=== PATIENT | female | born 1975 | race Caucasian/White ===

== ENCOUNTER 2017-05-11 13:54 | Emergency (ER) | payer MEDICARE, MEDICAID ==
[~2017-05-11] VITALS: Ht 165.1 cm; Wt 95.3 kg
[2017-05-11 14:02] VITALS: BP 149/73
[2017-05-11] MEDS ORDERED: FAMOTIDINE (20 MG) 20 MG TABLET ONE (14:26)
[2017-05-11] MEDS ORDERED: MAG HYDROX/AL HYDROX/SIMETH 30 ML UDC ONE (14:26)
[2017-05-11] MEDS ORDERED: LIDOCAINE VISCOUS 2% UD 15 ML UDC ONE (14:26)
[2017-05-11] MEDS ORDERED: DICYCLOMINE HCL 10 MG CAPSULE PO ONE ×2 (14:26→14:30)
[2017-05-11] MEDS ORDERED: LIDOCAINE VISCOUS 2% UD 15 ML UDC MM ONE (14:30)
[2017-05-11] MEDS ORDERED: MAG HYDROX/AL HYDROX/SIMETH 30 ML UDC PO ONE (14:30)
[2017-05-11] MEDS ORDERED: FAMOTIDINE (20 MG) 20 MG TABLET PO ONE (14:30)
== END 2017-05-11 14:54 | disposition home or self-care (01) ==
LOC: ER 13:58
DX: R10.13 Epigastric pain (principal); F31.9 Bipolar disorder, unspecified; F17.200 Nicotine dependence, unspecified, uncomplicated; Z87.442 Personal history of urinary calculi; Z88.8 Allergy status to other drugs, medicaments and biological substances; Z91.040 Latex allergy status; Z88.2 Allergy status to sulfonamides
CPT/HCPCS: 99284; A4606; Z7610

== ENCOUNTER 2017-10-07 22:05 | Emergency (ER) | payer MEDICARE, MEDICAID ==
[~2017-10-07] VITALS: Ht 160 cm; Wt 91.2 kg
--- NOTE | 2017-10-07 22:10 | NUR ---
PT BB SELF FROM HOME WITH C/O "STARTED FEELING ANXIOUS AND TOOK LEXAPRO AND NOW I FEEL DIZZY AND NAUSEOUS". PT DENIES N/V/D. PT DENIES ANY PAIN. PT SKIN PINK AND WARM TO TOUCH. RESP EVEN AND UNLABORED. NO S/S OF ACUTE DISTRESS NOTED. PT RESTING COMFORTABLY IN BED. AAOX4. AWAITING MD MARQUEZ.
[2017-10-07] MEDS ORDERED: LORAZEPAM 1 MG TABLET ONE (22:27)
[2017-10-07] MEDS ORDERED: IBUPROFEN 400 MG TABLET ONE (22:27)
[2017-10-07] MEDS ORDERED: LORAZEPAM 1 MG TABLET PO ONE (22:30)
[2017-10-07] MEDS ORDERED: IBUPROFEN 400 MG TABLET PO ONE (22:30)
[2017-10-07 22:34] LABS: APPEARANCE,URINE CLEAR (CLEAR); BILIRUBIN,URINE NEGATIVE (NEGATIVE); BLOOD, URINE NEGATIVE Ery/uL (NEGATIVE); COLOR,URINE YELLOW (YELLOW); KETONES,URINE NEGATIVE (NEGATIVE); LEUKOCYTE ESTERASE ,URINE NEGATIVE (NEGATIVE); NITRITE, URINE NEGATIVE (NEGATIVE); PH,URINE 7.5 (5.0-8.0); PROTEIN,URINE NEGATIVE (NEGATIVE); UGLUCOSE NEGATIVE (NEGATIVE); UROBILINOGEN,URINE 0.2 EU/dL (0.2)
--- NOTE | 2017-10-07 23:40 | NUR ---
Patient discharged to home in stable condition. Written and verbal after care instructions AND RX given. Patient verbalizes understanding of instruction. AMBULATORY WITH STEADY GAIT. VSS
[2017-10-07 23:53] VITALS: BP 110/67
== END 2017-10-07 23:54 | disposition home or self-care (01) ==
LOC: ER 22:08
DX: F41.9 Anxiety disorder, unspecified (principal); J11.1 Influenza due to unidentified influenza virus with other respiratory manifestations; E03.9 Hypothyroidism, unspecified; F17.200 Nicotine dependence, unspecified, uncomplicated; F31.9 Bipolar disorder, unspecified; Z87.442 Personal history of urinary calculi; Z88.2 Allergy status to sulfonamides; Z88.8 Allergy status to other drugs, medicaments and biological substances; Z91.040 Latex allergy status
CPT/HCPCS: 81001; 82962; 84703; 93005; 99285; A4606; 81000-TC; Z7610

== ENCOUNTER 2018-01-20 01:21 | Emergency (ER) | payer MEDICARE, MEDICAID ==
[~2018-01-20] VITALS: Ht 160 cm; Wt 90.7 kg
[2018-01-20 01:29] VITALS: BP 132/70
[2018-01-20] MEDS ORDERED: IBUPROFEN 600 MG TABLET PO ONE ×2 (02:00→02:11)
== END 2018-01-20 02:52 | disposition home or self-care (01) ==
LOC: ER 01:22
DX: S00.83XA Contusion of other part of head, initial encounter (principal); F31.9 Bipolar disorder, unspecified; F41.9 Anxiety disorder, unspecified; E03.9 Hypothyroidism, unspecified; F17.200 Nicotine dependence, unspecified, uncomplicated; Z87.442 Personal history of urinary calculi; Z98.51 Tubal ligation status; Z91.040 Latex allergy status; Z88.2 Allergy status to sulfonamides; Z88.8 Allergy status to other drugs, medicaments and biological substances; W51.XXXA Accidental striking against or bumped into by another person, initial encounter; Y93.89 Activity, other specified; Y92.89 Other specified places as the place of occurrence of the external cause; Y99.8 Other external cause status
CPT/HCPCS: 70486-TC; A4606; Z7610

== ENCOUNTER 2018-04-21 01:30 | Emergency (ER) | payer MEDICARE, MEDICAID ==
[~2018-04-21] VITALS: Ht 160 cm; Wt 90.3 kg
[2018-04-21 02:00] VITALS: BP 120/70
[2018-04-21 03:20] LABS: APPEARANCE,URINE SL CLOUDY (CLEAR); BILIRUBIN,URINE NEGATIVE (NEGATIVE); BLOOD, URINE NEGATIVE Ery/uL (NEGATIVE); COLOR,URINE YELLOW (YELLOW); KETONES,URINE NEGATIVE (NEGATIVE); LEUKOCYTE ESTERASE ,URINE TRACE (NEGATIVE); NITRITE, URINE NEGATIVE (NEGATIVE); PROTEIN,URINE NEGATIVE (NEGATIVE); UGLUCOSE NEGATIVE (NEGATIVE); UROBILINOGEN,URINE 0.2 EU/dL (0.2)
[2018-04-21] MEDS ORDERED: IBUPROFEN 600 MG TABLET PO ONE ×2 (03:22→03:30)
[2018-04-21] MEDS ORDERED: MAG HYDROX/AL HYDROX/SIMETH 30 ML UDC ONE (03:22)
[2018-04-21] MEDS ORDERED: LIDOCAINE VISCOUS 2% UD 15 ML UDC ONE (03:22)
[2018-04-21] MEDS ORDERED: FAMOTIDINE (20 MG) 20 MG TABLET ONE (03:22)
[2018-04-21 03:30] LABS: BASOPHILS # (AUTO) 0.1 /CMM (0.0-0.2); BASOPHILS % (AUTO) 0.5 % (0.0-2.0); EOSINOPHILS % (AUTO) 3.1 % (0.0-6.0); HEMATOCRIT 40 % (33-45); LYMPHOCYTES # (AUTO) 2.4 /CMM (0.8-4.8); LYMPHOCYTES % (AUTO) 23.9 % (20.0-44.0); MEAN CORPUSCULAR HEMOGLOBIN 30 PG (26.0-33.0); MEAN CORPUSCULAR HGB CONC 33 g/dl (31.0-36.0); MEAN CORPUSCULAR VOLUME 92 fL (82-100); MONOCYTES # (AUTO) 0.6 /CMM (0.1-1.30); MONOCYTES % (AUTO) 6.1 % (2.0-12.0); NEUTROPHILS # (AUTO) 6.7 /CMM (1.8-8.9); NEUTROPHILS % (AUTO) 66.4 % (43.0-81.0); PLATELET COUNT (AUTO) 324 /CMM (150-450); RDW COEFFICIENT OF VARIATION 14.5 (11.5-15.0); RED BLOOD CELL COUNT(AUTO) 4.36 MIL/uL (4.0-5.2); WHITE BLOOD COUNT (AUTO) 10.1 K/uL (4.3-11.0)
[2018-04-21] MEDS ORDERED: MAG HYDROX/AL HYDROX/SIMETH 30 ML UDC PO ONE (03:30)
[2018-04-21] MEDS ORDERED: LIDOCAINE VISCOUS 2% UD 15 ML UDC MM ONE (03:30)
[2018-04-21] MEDS ORDERED: FAMOTIDINE (20 MG) 20 MG TABLET PO ONE (03:30)
[2018-04-21 03:45] LABS: BACTERIA,URINE Few /HPF (None Seen); SQUAMOUS EPITHELIAL CELL,UR Few /HPF (None Seen)
[2018-04-21 03:48] LABS: ALBUMIN 3.4 g/dL (3.4-5.0); BILIRUBIN,DIRECT 0.1 mg/dL (0.0-0.2); BILIRUBIN,TOTAL 0.7 mg/dL (0.2-1.0); CALCIUM, SERUM 8.5 mg/dL (8.5-10.1); CREATININE 0.7 mg/dL (0.6-1.3); POTASSIUM 4.1 mmol/L (3.5-5.1); TOTAL PROTEIN, SERUM 7.3 g/dL (6.4-8.2)
== END 2018-04-21 05:52 | disposition home or self-care (01) ==
LOC: ER 01:31
DX: K52.9 Noninfective gastroenteritis and colitis, unspecified (principal); F31.9 Bipolar disorder, unspecified; Z87.442 Personal history of urinary calculi; R10.13 Epigastric pain; F17.200 Nicotine dependence, unspecified, uncomplicated; Z91.040 Latex allergy status; Z88.2 Allergy status to sulfonamides; Z88.8 Allergy status to other drugs, medicaments and biological substances
CPT/HCPCS: 36415; 74176; 80048; 80076; 81001; 83690; 84703; 85025; 87086; 99285; A4606; J7030; 81000-TC; Z7610

== ENCOUNTER 2018-04-29 20:21 | Emergency (ER) | payer MEDICARE, MEDICAID ==
[~2018-04-29] VITALS: Ht 160 cm; Wt 88.0 kg
[2018-04-29 20:31] VITALS: BP 118/71
[2018-04-29] MEDS ORDERED: ACETAMINOPHEN W/ CODEINE#3 1 EA TABLET ONE (21:26)
[2018-04-29] MEDS ORDERED: predniSONE 20 MG TABLET ONE (21:27)
[2018-04-29] MEDS ORDERED: ACETAMINOPHEN W/ CODEINE#3 1 EA TABLET PO ONE (21:30)
[2018-04-29] MEDS ORDERED: predniSONE 20 MG TABLET PO ONE (21:30)
== END 2018-04-29 21:40 | disposition home or self-care (01) ==
LOC: ER 20:22
DX: M54.12 Radiculopathy, cervical region (principal); M79.642 Pain in left hand; F31.9 Bipolar disorder, unspecified; F41.9 Anxiety disorder, unspecified; E03.9 Hypothyroidism, unspecified; Z87.442 Personal history of urinary calculi; F17.200 Nicotine dependence, unspecified, uncomplicated; Z88.2 Allergy status to sulfonamides; Z88.8 Allergy status to other drugs, medicaments and biological substances; Z91.040 Latex allergy status
CPT/HCPCS: 29125; 99283; A4606; J7512; Z7610

== ENCOUNTER 2018-10-06 20:18 | Emergency (ER) | payer MEDICARE, MEDICAID ==
[~2018-10-06] VITALS: Ht 160 cm; Wt 90.7 kg
--- NOTE | 2018-10-06 20:53 | NUR ---
URINE COLLECTED AND SENT TO LAB
[2018-10-06 21:14] LABS: APPEARANCE,URINE Clear (CLEAR); BILIRUBIN,URINE Negative (NEGATIVE); BLOOD, URINE Negative Ery/uL (NEGATIVE); COLOR,URINE Yellow (YELLOW); KETONES,URINE Negative (NEGATIVE); LEUKOCYTE ESTERASE ,URINE Negative (NEGATIVE); NITRITE, URINE Negative (NEGATIVE); PROTEIN,URINE Negative (NEGATIVE); UGLUCOSE Negative (NEGATIVE); UROBILINOGEN,URINE 0.2 EU/dL (0.2)
[2018-10-06] MEDS ORDERED: ACETAMINOPHEN ES 500 MG TABLET ONE (21:29)
[2018-10-06] MEDS ORDERED: ACETAMINOPHEN ES 500 MG TABLET PO ONE (21:30)
[2018-10-06] MEDS ORDERED: IV NS 0.9% 500 ML BAG IV ONE (21:30)
--- NOTE | 2018-10-06 21:30 | NUR ---
Pt came in for abdominal pain, states it must be related to her kidney stones, reports some flank pain. Denies N/V, no fever. Pt is A, O/4, moves all extrmities without difficulty, on RA.
[2018-10-06] MEDS ORDERED: IBUPROFEN 400 MG TABLET ONE (21:35)
--- NOTE | 2018-10-06 21:35 | NUR ---
HL 24g left hand started, labs drawn and sent to lab.
[2018-10-06 21:38] LABS: BASOPHILS # (AUTO) 0.1 /CMM (0.0-0.2); HEMATOCRIT 38 % (33-45); HEMOGLOBIN 12.7 g/dL (11.5-14.8); LYMPHOCYTES # (AUTO) 2.2 /CMM (0.8-4.8); LYMPHOCYTES % (AUTO) 26.8 % (20.0-44.0); MEAN CORPUSCULAR HGB CONC 33 g/dl (31.0-36.0); MEAN CORPUSCULAR VOLUME 90 fL (82-100); MONOCYTES # (AUTO) 0.7 /CMM (0.1-1.30); MONOCYTES % (AUTO) 8.4 % (2.0-12.0); NEUTROPHILS # (AUTO) 4.9 /CMM (1.8-8.9); NEUTROPHILS % (AUTO) 59.8 % (43.0-81.0); PLATELET COUNT (AUTO) 330 /CMM (150-450); RED BLOOD CELL COUNT(AUTO) 4.23 MIL/uL (4.0-5.2); WHITE BLOOD COUNT (AUTO) 8.3 K/uL (4.3-11.0)
[2018-10-06 21:45] LABS: CALCIUM, SERUM 9.1 mg/dL (8.5-10.1); CREATININE 0.7 mg/dL (0.6-1.3)
[2018-10-06 21:52] LABS: ALBUMIN 3.3 g/dL (3.4-5.0); BILIRUBIN,DIRECT 0.1 mg/dL (0.0-0.2); BILIRUBIN,TOTAL 0.5 mg/dL (0.2-1.0); TOTAL PROTEIN, SERUM 7.1 g/dL (6.4-8.2)
--- NOTE | 2018-10-06 21:55 | NUR ---
Pt ambulated to the BR
[2018-10-06] MEDS ORDERED: IBUPROFEN 400 MG TABLET PO ONE (22:00)
--- NOTE | 2018-10-06 22:20 | NUR ---
Pt transported to Radiology for CT abdomen
--- NOTE | 2018-10-06 22:45 | NUR ---
Pt states she feels a lot better, abd pain has subsided. Resting in bed with daughter at BS
[2018-10-07 00:19] VITALS: BP 109/56
--- NOTE | 2018-10-07 00:19 | NUR ---
Patient discharged to home in stable condition. Written and verbal after care instructions given and copy of CT Scan result . Patient verbalizes understanding of instruction.IV removed. Catheter intact and site benign. Pressure and 4x4 applied to site. No bleeding noted. Pt ambulatory with a steady gait
== END 2018-10-07 00:21 | disposition home or self-care (01) ==
LOC: ER 20:21
DX: R10.31 Right lower quadrant pain (principal); F31.9 Bipolar disorder, unspecified; E03.9 Hypothyroidism, unspecified; F17.200 Nicotine dependence, unspecified, uncomplicated; Z98.890 Other specified postprocedural states; Z98.51 Tubal ligation status; Z91.040 Latex allergy status; Z88.2 Allergy status to sulfonamides; Z88.1 Allergy status to other antibiotic agents; Z60.2 Problems related to living alone; Z87.442 Personal history of urinary calculi
CPT/HCPCS: 36415; 80048-TC; 80076-TC; 81000-TC; 83690-TC; 85025-TC; J7030

== ENCOUNTER 2019-05-31 00:31 | Emergency (ER) | payer MEDICARE, MEDICAID ==
[~2019-05-31] VITALS: Ht 160 cm; Wt 94.8 kg
--- NOTE | 2019-05-31 01:32 | NUR ---
TO BED 7 AMBULATORY C/O BLE [place]QU[place]O BITES X5 DAYS. PT AAOX4 NO ACUTE DISTRESS NOTED, RESP EVEN AND UNLABORED. PENDING ER MD MARQUEZ.
[2019-05-31] MEDS ORDERED: DEXAMETHASONE SOD PHOSPHATE 4 MG/ML VIAL ONE (01:46)
[2019-05-31 01:51] VITALS: BP 134/76
--- NOTE | 2019-05-31 01:51 | NUR ---
Patient discharged to home in stable condition. Written and verbal after care instructions given. Patient verbalizes understanding of instruction. ambulatory with a steady gait
[2019-05-31] MEDS ORDERED: DEXAMETHASONE SOD PHOSPHATE 4 MG/ML VIAL IM ONE (02:00)
== END 2019-05-31 01:53 | disposition home or self-care (01) ==
LOC: ER 00:32
DX: S80.862A Insect bite (nonvenomous), left lower leg, initial encounter (principal); S80.861A Insect bite (nonvenomous), right lower leg, initial encounter; F31.9 Bipolar disorder, unspecified; F41.9 Anxiety disorder, unspecified; E03.9 Hypothyroidism, unspecified; F17.200 Nicotine dependence, unspecified, uncomplicated; Z98.890 Other specified postprocedural states; Z88.2 Allergy status to sulfonamides; Z88.1 Allergy status to other antibiotic agents; Z91.040 Latex allergy status; Z60.2 Problems related to living alone; W57.XXXA Bitten or stung by nonvenomous insect and other nonvenomous arthropods, initial encounter; Y93.89 Activity, other specified; Y92.89 Other specified places as the place of occurrence of the external cause; Y99.8 Other external cause status
CPT/HCPCS: 96372; 99283; J1100

== ENCOUNTER 2019-07-14 21:07 | Emergency (ER) | payer MEDICARE, MEDICAID ==
[~2019-07-14] VITALS: Ht 160 cm; Wt 97.5 kg
[2019-07-14 21:17] VITALS: BP 141/86
[2019-07-14] MEDS ORDERED: predniSONE 20 MG TABLET ONE (21:59)
[2019-07-14] MEDS: predniSONE 20 MG TABLET PO ONE (22:02)
[2019-07-14] MEDS ORDERED: IPRATROPIUM NEB FS 0.5 MG/2.5 ML AMPUL.NEB ONE (22:06)
[2019-07-14] MEDS ORDERED: ALBUTEROL FS 2.5 MG/3 ML VIAL.NEB ONE (22:06)
[2019-07-14] MEDS: IPRATROPIUM NEB FS 0.5 MG/2.5 ML AMPUL.NEB NEB ONE (22:08)
[2019-07-14] MEDS: ALBUTEROL FS 2.5 MG/3 ML VIAL.NEB NEB ONE (22:08)
--- NOTE | 2019-07-14 22:09 | NUR ---
PT MEDICATED ORDERED. RT AT BEDSIDE TO GIVE HHN TX.
--- NOTE | 2019-07-14 23:21 | NUR ---
Patient discharged to home in stable condition. Written and verbal after care instructions given. Patient verbalizes understanding of instruction. ambulatory with a steady gait noted. pt aaox4 no acute distress noted, resp even and unlabored.
== END 2019-07-14 23:23 | disposition home or self-care (01) ==
LOC: ER 21:07
DX: J20.9 Acute bronchitis, unspecified (principal); F31.9 Bipolar disorder, unspecified; F41.9 Anxiety disorder, unspecified; E03.9 Hypothyroidism, unspecified; F17.200 Nicotine dependence, unspecified, uncomplicated; Z87.442 Personal history of urinary calculi; Z98.51 Tubal ligation status; Z98.890 Other specified postprocedural states; Z60.2 Problems related to living alone; Z91.040 Latex allergy status; Z88.2 Allergy status to sulfonamides; Z88.1 Allergy status to other antibiotic agents
CPT/HCPCS: 71045; 94644; 99285; J7512

== ENCOUNTER 2020-09-15 04:44 | Emergency (ER) | payer MEDICARE, OTHER ==
[~2020-09-15] VITALS: Ht 160 cm; Wt 88.0 kg
[2020-09-15 04:58] VITALS: BP 136/73
--- NOTE | 2020-09-15 04:59 | NUR ---
PT BIBSEL C/O GERD, ABD PAIN, AND EPIGASTRIC PAIN X1 MONTH. PT STATES "SHE AWOKE ANXIOUS, FEELING SOB". PT A&OX4 AND APPEARS TEARFUL. PT BREATHING EVENLY AND UNLABORED. SKIN WARM AND INTACT.
[2020-09-15] MEDS: MAG HYDROX/AL HYDROX/SIMETH 30 ML UDC PO ONE (05:00)
[2020-09-15] MEDS ORDERED: MAG HYDROX/AL HYDROX/SIMETH 30 ML UDC ONE (05:07)
[2020-09-15] MEDS: LIDOCAINE VISCOUS 2% UD 15 ML UDC MM ONE (05:13)
--- NOTE | 2020-09-15 05:26 | NUR ---
Patient discharged to home in stable condition. Written and verbal after care instructions given. Patient verbalizes understanding of instruction. Pt ambulatory with a steady gait.
== END 2020-09-15 05:27 | disposition home or self-care (01) ==
LOC: ER 04:51
DX: K21.9 Gastro-esophageal reflux disease without esophagitis (principal); F41.9 Anxiety disorder, unspecified; F31.9 Bipolar disorder, unspecified; E03.9 Hypothyroidism, unspecified; F17.200 Nicotine dependence, unspecified, uncomplicated; Z98.890 Other specified postprocedural states; Z91.040 Latex allergy status; Z88.2 Allergy status to sulfonamides; Z88.1 Allergy status to other antibiotic agents; Z60.2 Problems related to living alone

== ENCOUNTER 2020-11-07 11:31 | Emergency (ER) | payer MEDICARE, OTHER ==
[~2020-11-07] VITALS: Ht 160 cm; Wt 81.6 kg
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
[2020-11-07 11:41] VITALS: BP 107/65
--- NOTE | 2020-11-07 11:50 | NUR ---
ED md at bedside-order given for toraldol IM-toradol admin to right arm deltoid-pt tolerated well-resting comfortably
[2020-11-07] MEDS ORDERED: NAPR500T6 PO (11:54)
[2020-11-07] MEDS ORDERED: KETOROLAC TROMETHAMINE INJ 30 MG/ML VIAL ONE (11:54)
[2020-11-07] MEDS ORDERED: KETOROLAC TROMETHAMINE INJ 60 MG/2 ML VIAL IM ONE (12:00)
== END 2020-11-07 12:43 | disposition home or self-care (01) ==
LOC: ER 11:34
DX: R51.9 Headache, unspecified (principal); F31.9 Bipolar disorder, unspecified; F41.9 Anxiety disorder, unspecified; E03.9 Hypothyroidism, unspecified; F17.200 Nicotine dependence, unspecified, uncomplicated; Z87.442 Personal history of urinary calculi; Z98.890 Other specified postprocedural states; Z98.51 Tubal ligation status; Z91.040 Latex allergy status; Z88.2 Allergy status to sulfonamides; Z88.8 Allergy status to other drugs, medicaments and biological substances; Z60.2 Problems related to living alone; Z79.899 Other long term (current) drug therapy
CPT/HCPCS: 96372; 99283; J1885

== ENCOUNTER 2022-03-28 12:02 | Emergency (ER) | payer MEDICARE, OTHER ==
[~2022-03-28] VITALS: Ht 160 cm; Wt 65.8 kg
[~2022-03-28 12:02] MED LIST: NAPR500T6 PO
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
[2022-03-28] MEDS: IV NS 0.9% 1,000 ML BAG IV ONE (12:47)
--- NOTE | 2022-03-28 12:47 | NUR ---
IV LINE IS ESTABLISHED, BLOOD SPECIMEN COLLECTED AND SENT TO THE LAB. THE LINE IS SALINE LOCKED.
[2022-03-28 12:51] LABS: BASOPHILS % (AUTO) 0.7 % (0.0-2.0); EOSINOPHILS % (AUTO) 0.4 % (0.0-6.0); HEMATOCRIT 37 % (33-45); LYMPHOCYTES % (AUTO) 18.3 % (20.0-44.0); MEAN CORPUSCULAR HGB CONC 32 g/dl (31.0-36.0); MEAN CORPUSCULAR VOLUME 83 fL (82-100); MONOCYTES # (AUTO) 0.5 K/uL (0.1-1.30); MONOCYTES % (AUTO) 9.6 % (2.0-12.0); NEUTROPHILS # (AUTO) 3.7 K/uL (1.8-8.9); PLATELET COUNT (AUTO) 253 K/uL (150-450); RED BLOOD CELL COUNT(AUTO) 4.51 MIL/uL (4.0-5.2); WHITE BLOOD COUNT (AUTO) 5.2 K/uL (4.3-11.0)
[2022-03-28 13:02] LABS: CALCIUM, SERUM 8.8 mg/dL (8.5-10.1); CARBON DIOXIDE 26 mmol/L (21-32); CHLORIDE 103 mmol/L (98-107); CREATININE 0.7 mg/dL (0.6-1.3); GLUCOSE 108 mg/dL (74-106); POTASSIUM 3.7 mmol/L (3.5-5.1); SODIUM SERUM 137 mmol/L (136-145); UREA NITROGEN, BLOOD 7 mg/dL (7-18)
[2022-03-28 16:35] VITALS: BP 110/61
--- NOTE | 2022-03-28 16:35 | NUR ---
Patient discharged to home in stable condition. Written and verbal after care instructions given. Patient verbalizes understanding of instruction.IV removed. Catheter intact and site benign. Pressure and 4x4 applied to site. No bleeding noted.
== END 2022-03-28 16:35 | disposition home or self-care (01) ==
LOC: ER 12:15
DX: R00.2 Palpitations (principal); F41.9 Anxiety disorder, unspecified; R00.0 Tachycardia, unspecified; F31.9 Bipolar disorder, unspecified; E03.9 Hypothyroidism, unspecified; F17.200 Nicotine dependence, unspecified, uncomplicated; Z87.442 Personal history of urinary calculi; Z88.8 Allergy status to other drugs, medicaments and biological substances; Z60.2 Problems related to living alone; Z79.1 Long term (current) use of non-steroidal anti-inflammatories (NSAID)
CPT/HCPCS: 99285; 96360; 71045; 93005; 85025; 80048; 36415; 84484 ×2; 84702; J7030

== ENCOUNTER 2022-03-30 03:51 | Emergency (ER) | payer MEDICARE, OTHER ==
[~2022-03-30] VITALS: Ht 160 cm; Wt 65.8 kg
[2022-03-30 04:19] VITALS: BP 124/90
== END 2022-03-30 05:06 | disposition home or self-care (01) ==
LOC: ER 04:01
DX: G47.00 Insomnia, unspecified (principal); F31.9 Bipolar disorder, unspecified; F41.9 Anxiety disorder, unspecified; E03.9 Hypothyroidism, unspecified; F17.200 Nicotine dependence, unspecified, uncomplicated; Z87.442 Personal history of urinary calculi; Z88.2 Allergy status to sulfonamides; Z88.8 Allergy status to other drugs, medicaments and biological substances; Z60.2 Problems related to living alone; Z79.1 Long term (current) use of non-steroidal anti-inflammatories (NSAID)

== ENCOUNTER 2024-07-13 09:31 | Emergency (ER) | payer MEDICARE, OTHER ==
[~2024-07-13] VITALS: Ht 160 cm; Wt 77.1 kg
[2024-07-13] MEDS: IV NS 0.9% 500 ML BAG IV ONE (10:00)
[2024-07-13] MEDS ORDERED: ONDANSETRON HCL/PF 4 MG/2 ML VIAL ONE (10:11)
[2024-07-13] MEDS ORDERED: HYDROMORPHONE 1 MG/1 ML DISP.SYRIN ONE (10:11)
[2024-07-13] MEDS: HYDROMORPHONE INJ 2 MG/ML DISP.SYRIN IV ONE (10:15)
[2024-07-13] MEDS: ONDANSETRON HCL/PF 4 MG/2 ML VIAL IVP ONE (10:15)
[2024-07-13 10:32] LABS: BASOPHILS # (AUTO) 0.1 K/uL (0.0-0.2); BASOPHILS % (AUTO) 0.9 % (0.0-2.0); EOSINOPHILS # (AUTO) 0.1 K/uL (0.0-0.7); HEMATOCRIT 34 % (33-45); HEMOGLOBIN 10.8 g/dL (11.5-14.8); LYMPHOCYTES # (AUTO) 2.2 K/uL (0.8-4.8); LYMPHOCYTES % (AUTO) 32.3 % (20.0-44.0); MEAN CORPUSCULAR HEMOGLOBIN 24 PG (26.0-33.0); MEAN CORPUSCULAR HGB CONC 32 g/dl (31.0-36.0); MEAN CORPUSCULAR VOLUME 77 fL (82-100); MONOCYTES # (AUTO) 0.7 K/uL (0.1-1.30); MONOCYTES % (AUTO) 9.8 % (2.0-12.0); NEUTROPHILS # (AUTO) 3.8 K/uL (1.8-8.9); PLATELET COUNT (AUTO) 336 K/uL (150-450); RED BLOOD CELL COUNT(AUTO) 4.44 MIL/uL (4.0-5.2); RED CELL DISTRIBUTION WIDTH 17.4 % (11.5-15.0); WHITE BLOOD COUNT (AUTO) 6.9 K/uL (4.3-11.0)
[2024-07-13 10:50] LABS: CALCIUM, SERUM 8.4 mg/dL (8.5-10.1); CREATININE 0.6 mg/dL (0.6-1.3); POTASSIUM 3.5 mmol/L (3.5-5.1)
[2024-07-13 10:55] LABS: ALBUMIN 3.4 g/dL (3.4-5.0); BILIRUBIN,DIRECT 0.2 mg/dL (0.0-0.2); BILIRUBIN,TOTAL 0.6 mg/dL (0.2-1.0); TOTAL PROTEIN, SERUM 7.4 g/dL (6.4-8.2)
[2024-07-13] MEDS ORDERED: IOHEXOL-350 100 ML VIAL IV ONE (11:21)
[2024-07-13] MEDS ORDERED: NAPR-1164 PO (12:28)
[2024-07-13 12:44] VITALS: BP 123/71; TEMP 97.8; O2SAT 99
== END 2024-07-13 12:44 | disposition home or self-care (01) ==
LOC: ER 09:33
DX: M79.10 Myalgia, unspecified site (principal); E03.9 Hypothyroidism, unspecified; F17.200 Nicotine dependence, unspecified, uncomplicated; F31.9 Bipolar disorder, unspecified; Z87.442 Personal history of urinary calculi; Z88.1 Allergy status to other antibiotic agents; Z88.2 Allergy status to sulfonamides; Z98.51 Tubal ligation status; Z60.2 Problems related to living alone
CPT/HCPCS: 99285; 74174; 96374; 71275; 96375; 93005; 85025; 80048; 83690; 80076; 36415; J2405; J7040; Q9967; J1171

== ENCOUNTER 2024-07-15 16:55 | Emergency (ER) | payer MEDICARE, OTHER ==
[~2024-07-15] VITALS: Ht 160 cm; Wt 77.6 kg
[~2024-07-15 16:55] MED LIST changes: +NAPR-1164 PO
[2024-07-15 17:27] VITALS: BP 135/68; TEMP 98
[2024-07-15] MEDS ORDERED: ACETAMINOPHEN 650 MG/20.3 ML UDC ONE (17:27)
[2024-07-15] MEDS: ACETAMINOPHEN 160 MG/5 ML PO ONE (17:31)
[2024-07-15 17:51] VITALS: O2SAT 99
== END 2024-07-15 17:52 | disposition home or self-care (01) ==
LOC: ER 17:04
DX: M79.10 Myalgia, unspecified site (principal); E03.9 Hypothyroidism, unspecified; F17.200 Nicotine dependence, unspecified, uncomplicated; F31.9 Bipolar disorder, unspecified; Z87.442 Personal history of urinary calculi; Z88.1 Allergy status to other antibiotic agents; Z88.2 Allergy status to sulfonamides; Z98.51 Tubal ligation status; Z60.2 Problems related to living alone

== ENCOUNTER 2024-08-02 11:53 | Emergency (ER) | payer MEDICARE, OTHER ==
[~2024-08-02] VITALS: Ht 160 cm; Wt 79.4 kg
[2024-08-02] MEDS ORDERED: ONDANSETRON HCL/PF 4 MG/2 ML VIAL ONE (12:24)
[2024-08-02] MEDS: ONDANSETRON HCL/PF 4 MG/2 ML VIAL IVP ONE (12:30)
[2024-08-02] MEDS: IV NS 0.9% 1,000 ML BAG IV ONE (12:30)
[2024-08-02 12:39] LABS: BASOPHILS # (AUTO) 0.1 K/uL (0.0-0.2); BASOPHILS % (AUTO) 1.4 % (0.0-2.0); EOSINOPHILS # (AUTO) 0.3 K/uL (0.0-0.7); EOSINOPHILS % (AUTO) 4.3 % (0.0-6.0); HEMATOCRIT 30 % (33-45); HEMOGLOBIN 9.5 g/dL (11.5-14.8); LYMPHOCYTES # (AUTO) 1.6 K/uL (0.8-4.8); LYMPHOCYTES % (AUTO) 25.4 % (20.0-44.0); MEAN CORPUSCULAR HEMOGLOBIN 25 PG (26.0-33.0); MEAN CORPUSCULAR HGB CONC 32 g/dl (31.0-36.0); MEAN CORPUSCULAR VOLUME 77 fL (82-100); MONOCYTES # (AUTO) 0.8 K/uL (0.1-1.30); MONOCYTES % (AUTO) 12.8 % (2.0-12.0); NEUTROPHILS # (AUTO) 3.5 K/uL (1.8-8.9); NEUTROPHILS % (AUTO) 56.1 % (43.0-81.0); PLATELET COUNT (AUTO) 358 K/uL (150-450); RED BLOOD CELL COUNT(AUTO) 3.84 MIL/uL (4.0-5.2); RED CELL DISTRIBUTION WIDTH 16.7 % (11.5-15.0); WHITE BLOOD COUNT (AUTO) 6.3 K/uL (4.3-11.0)
[2024-08-02 13:05] LABS: ALBUMIN 2.9 g/dL (3.4-5.0); BILIRUBIN,DIRECT 0.1 mg/dL (0.0-0.2); BILIRUBIN,TOTAL 0.3 mg/dL (0.2-1.0); CALCIUM, SERUM 8.2 mg/dL (8.5-10.1); CREATININE 0.6 mg/dL (0.6-1.3); POTASSIUM 4.1 mmol/L (3.5-5.1); TOTAL PROTEIN, SERUM 6.5 g/dL (6.4-8.2)
[2024-08-02 14:17] LABS: APPEARANCE,URINE CLEAR (CLEAR); BILIRUBIN,URINE NEGATIVE (NEGATIVE); BLOOD, URINE NEGATIVE Ery/uL (NEGATIVE); COLOR,URINE YELLOW (YELLOW); KETONES,URINE NEGATIVE (NEGATIVE); LEUKOCYTE ESTERASE ,URINE NEGATIVE (NEGATIVE); NITRITE, URINE NEGATIVE (NEGATIVE); PREGNANCY TEST URINE QUAL NEGATIVE (NEGATIVE); PROTEIN,URINE NEGATIVE (NEGATIVE); UGLUCOSE NEGATIVE (NEGATIVE); UROBILINOGEN,URINE 0.2 EU/dL (0.2)
[2024-08-02] MEDS ORDERED: ACETAMINOPHEN ES 500 MG TABLET ONE (14:41)
[2024-08-02] MEDS: ACETAMINOPHEN ES 500 MG TABLET PO ONE (14:42)
[2024-08-02 16:46] VITALS: BP 112/66; TEMP 98.8; O2SAT 95
== END 2024-08-02 16:47 | disposition home or self-care (01) ==
LOC: ER 11:55
DX: R07.9 Chest pain, unspecified (principal); R05.9 Cough, unspecified; R10.9 Unspecified abdominal pain; R11.2 Nausea with vomiting, unspecified; R68.83 Chills (without fever); E03.9 Hypothyroidism, unspecified; F17.200 Nicotine dependence, unspecified, uncomplicated; F31.9 Bipolar disorder, unspecified; Z87.442 Personal history of urinary calculi; Z88.1 Allergy status to other antibiotic agents; Z88.2 Allergy status to sulfonamides; Z98.51 Tubal ligation status; Z60.2 Problems related to living alone
CPT/HCPCS: 99285; 96374; 76770; 71045; 96361; 93005; 85025; 80048; 83690; 80076; 84703; 81003; 36415; 84484; J2405; J7030; A4223

== ENCOUNTER 2024-08-28 20:45 | Emergency (ER) | payer MEDICARE, OTHER ==
[~2024-08-28] VITALS: Ht 160 cm; Wt 79.4 kg
[2024-08-28] MEDS ORDERED: ACETAMINOPHEN ES 500 MG TABLET ONE (21:16)
[2024-08-28] MEDS ORDERED: IBUPROFEN 600 MG TABLET ONE (21:16)
[2024-08-28] MEDS: IBUPROFEN 600 MG TABLET PO ONE (21:28)
[2024-08-28] MEDS: ACETAMINOPHEN ES 500 MG TABLET PO ONE (21:29)
[2024-08-29] MEDS ORDERED: dexaMETHasone SOD PHOSPHATE 1 ML ONE (01:04)
[2024-08-29 01:06] VITALS: BP 110/57; TEMP 98.5; O2SAT 100
[2024-08-29] MEDS: dexaMETHasone SOD PHOSPHATE 4 MG/ML VIAL IM ONE (01:08)
== END 2024-08-29 01:06 | disposition home or self-care (01) ==
LOC: ER 20:49
DX: S06.0X0A Concussion without loss of consciousness, initial encounter (principal); E03.9 Hypothyroidism, unspecified; F17.200 Nicotine dependence, unspecified, uncomplicated; F31.9 Bipolar disorder, unspecified; R11.2 Nausea with vomiting, unspecified; R21 Rash and other nonspecific skin eruption; Z87.442 Personal history of urinary calculi; Z88.1 Allergy status to other antibiotic agents; Z88.2 Allergy status to sulfonamides; Z98.51 Tubal ligation status; Z60.2 Problems related to living alone; W22.8XXA Striking against or struck by other objects, initial encounter; Y93.89 Activity, other specified; Y92.89 Other specified places as the place of occurrence of the external cause; Y99.8 Other external cause status
CPT/HCPCS: 99285; 70450; 96372; J1100

== ENCOUNTER 2024-09-19 19:53 | Emergency (ER) | payer MEDICARE, OTHER ==
[~2024-09-19] VITALS: Ht 160 cm; Wt 81.6 kg
[2024-09-19] MEDS ORDERED: KETOROLAC TROMETHAMINE 15 MG/ML VIAL ONE (21:27)
[2024-09-19] MEDS ORDERED: ACETAMINOPHEN ES 500 MG TABLET ONE (21:28)
[2024-09-19] MEDS ORDERED: LIDOCAINE 5% (PATCH) 1 EA PATCH TP ONE (21:28)
[2024-09-19] MEDS: LIDOCAINE 5% (PATCH) 1 EA PATCH TP SCH (21:29)
[2024-09-19] MEDS: ACETAMINOPHEN ES 500 MG TABLET PO ONE (21:29)
[2024-09-19] MEDS: KETOROLAC TROMETHAMINE 15 MG/ML VIAL IM ONE (21:29)
[2024-09-19 21:42] LABS: PREGNANCY TEST URINE QUAL NEGATIVE (NEGATIVE)
[2024-09-19] MEDS ORDERED: IBUP-1490 PO (23:33)
[2024-09-19] MEDS ORDERED: ACET-2605 PO (23:33)
[2024-09-19 23:41] VITALS: BP 130/77; TEMP 98.4; O2SAT 98
== END 2024-09-20 00:06 | disposition home or self-care (01) ==
LOC: ER 19:54
DX: R10.9 Unspecified abdominal pain (principal); M62.838 Other muscle spasm; E03.9 Hypothyroidism, unspecified; F17.200 Nicotine dependence, unspecified, uncomplicated; F31.9 Bipolar disorder, unspecified; G89.29 Other chronic pain; Z76.5 Malingerer [conscious simulation]; Z87.442 Personal history of urinary calculi; Z88.1 Allergy status to other antibiotic agents; Z88.2 Allergy status to sulfonamides; Z98.51 Tubal ligation status; Z60.2 Problems related to living alone; W22.8XXA Striking against or struck by other objects, initial encounter; Y93.89 Activity, other specified; Y92.89 Other specified places as the place of occurrence of the external cause; Y99.8 Other external cause status
CPT/HCPCS: 99284; 96372; 73503; 71100; 84703; J1885; 73502

== ENCOUNTER 2024-11-01 15:26 | Emergency (ER) | payer MEDICARE, OTHER ==
[~2024-11-01] VITALS: Ht 167.6 cm; Wt 81.6 kg
[~2024-11-01 15:26] MED LIST changes: +ACET-2605 PO; +IBUP-1490 PO
[2024-11-01 15:28] VITALS: BP 157/70; TEMP 98.2
[2024-11-01 16:41] VITALS: O2SAT 98
== END 2024-11-01 16:41 | disposition home or self-care (01) ==
LOC: ER 16:15
DX: L24.9 Irritant contact dermatitis, unspecified cause (principal); R20.8 Other disturbances of skin sensation; E03.9 Hypothyroidism, unspecified; F17.200 Nicotine dependence, unspecified, uncomplicated; F31.9 Bipolar disorder, unspecified; Z87.442 Personal history of urinary calculi; Z88.1 Allergy status to other antibiotic agents; Z88.2 Allergy status to sulfonamides; Z98.51 Tubal ligation status; Z60.2 Problems related to living alone

== ENCOUNTER 2025-04-20 04:32 | Emergency (ER) | payer MEDICARE, MEDICAID ==
[~2025-04-20] VITALS: Ht 167.6 cm; Wt 81.6 kg
[2025-04-20] MEDS ORDERED: LIDOCAINE HCL/MPF 1% 30 ML VIAL IJ ONE (04:51)
[2025-04-20] MEDS ORDERED: KETOROLAC TROMETHAMINE 15 MG/ML VIAL ONE (04:51)
[2025-04-20] MEDS ORDERED: TDAP [DIPH/PERTUSSIS/TET] 0.5 ML VIAL IM ONE (04:52)
[2025-04-20] MEDS: LIDOCAINE HCL/PF 1% 30 ML VIAL TP ONE (05:00)
[2025-04-20] MEDS: KETOROLAC TROMETHAMINE 15 MG/ML VIAL IM ONE (05:35)
[2025-04-20 05:40] VITALS: BP 115/71; O2SAT 99
[2025-04-20] MEDS: TDAP [DIPH/PERTUSSIS/TET] 0.5 ML VIAL IM ONE (05:49)
== END 2025-04-20 08:27 | disposition home or self-care (01) ==
LOC: ER 04:34
DX: S01.21XA Laceration without foreign body of nose, initial encounter (principal); E03.9 Hypothyroidism, unspecified; F17.200 Nicotine dependence, unspecified, uncomplicated; F31.9 Bipolar disorder, unspecified; Z59.00 Homelessness unspecified; Z87.442 Personal history of urinary calculi; Z88.1 Allergy status to other antibiotic agents; Z88.2 Allergy status to sulfonamides; Z98.51 Tubal ligation status; Z60.2 Problems related to living alone; Z91.040 Latex allergy status; Y04.0XXA Assault by unarmed brawl or fight, initial encounter; Y93.89 Activity, other specified; Y92.89 Other specified places as the place of occurrence of the external cause; Y99.8 Other external cause status
CPT/HCPCS: 12013; 70450; 70486; 96372; 99285; J1885; J3490; 90715

== ENCOUNTER 2025-05-25 02:41 | Emergency (ER) | payer MEDICARE, OTHER ==
[~2025-05-25] VITALS: Ht 152.4 cm; Wt 82.6 kg
[2025-05-25] MEDS: IV NS 0.9% 1,000 ML IV ONE (04:30)
[2025-05-25] MEDS: ONDANSETRON HCL/PF - ER 4 MG/2 ML VIAL IV ONE (04:30)
[2025-05-25 06:23] LABS: PLATELET COUNT (AUTO) 302 K/uL (150-450); RED BLOOD CELL COUNT(AUTO) 4.33 MIL/uL (4.0-5.2); RED CELL DISTRIBUTION WIDTH 18.5 % (11.5-15.0); WHITE BLOOD COUNT (AUTO) 5.4 K/uL (4.3-11.0)
[2025-05-25 06:31] LABS: CALCIUM, SERUM 8.7 mg/dL (8.5-10.1); CREATININE 0.8 mg/dL (0.6-1.3); SODIUM SERUM 139.0 mmol/L (136-145); UREA NITROGEN, BLOOD 13.0 mg/dL (7-18)
[2025-05-25 06:37] LABS: ASPARTATE AMINOTRANSFERASE 14.0 U/L (15-37); TOTAL PROTEIN, SERUM 6.9 g/dL (6.4-8.2)
[2025-05-25] MEDS ORDERED: ONDA4TAB5 PO (07:37)
[2025-05-25 07:43] VITALS: BP 110/69; TEMP 98.4; O2SAT 96
== END 2025-05-25 07:43 | disposition home or self-care (01) ==
LOC: ER 02:50
DX: R10.84 Generalized abdominal pain (principal); M13.862 Other specified arthritis, left knee; M13.861 Other specified arthritis, right knee; R11.10 Vomiting, unspecified; M25.562 Pain in left knee; M25.561 Pain in right knee; R11.2 Nausea with vomiting, unspecified; E03.9 Hypothyroidism, unspecified; F17.200 Nicotine dependence, unspecified, uncomplicated; F31.9 Bipolar disorder, unspecified; Z87.442 Personal history of urinary calculi; Z88.1 Allergy status to other antibiotic agents; Z88.2 Allergy status to sulfonamides; Z91.040 Latex allergy status; Z98.51 Tubal ligation status
CPT/HCPCS: 99284; 74176; 73564; 85025; 83690; 84550; 36415; 80053; J2405

== ENCOUNTER 2025-07-18 20:56 | Emergency (ER) | payer MEDICARE, MEDICAID ==
[~2025-07-18] VITALS: Ht 160 cm; Wt 81.6 kg
[~2025-07-18 20:56] MED LIST changes: +ONDA4TAB5 PO
[2025-07-18 21:09] VITALS: BP 134/71; TEMP 97.8; O2SAT 97
[2025-07-18] MEDS ORDERED: MECLIZINE HCL 25 MG TABLET ONE (21:48)
[2025-07-18] MEDS: MECLIZINE HCL 25 MG TABLET PO ONE (21:52)
[2025-07-18] MEDS ORDERED: LIDO1ADH62 TP (22:06)
[2025-07-18] MEDS ORDERED: MUPI22OI7 MC (22:06)
[2025-07-18] MEDS ORDERED: METH-649 PO (22:06)
[2025-07-18] MEDS ORDERED: MELO7.5T12 PO (22:06)
[2025-07-18] MEDS ORDERED: MECL-159 PO (22:06)
[2025-07-18] MEDS ORDERED: CETI1SOL7 PO (22:06)
[2025-07-18] MEDS ORDERED: BACI/NEOM/POLY B OINT PKT 1 UDPKT PACKET TP ONE (22:30)
== END 2025-07-18 22:22 | disposition home or self-care (01) ==
LOC: ER 21:02
DX: M54.50 Low back pain, unspecified (principal); R21 Rash and other nonspecific skin eruption; R42 Dizziness and giddiness; R10.84 Generalized abdominal pain; E03.9 Hypothyroidism, unspecified; F17.200 Nicotine dependence, unspecified, uncomplicated; F31.9 Bipolar disorder, unspecified; Z88.1 Allergy status to other antibiotic agents; Z88.2 Allergy status to sulfonamides; Z91.040 Latex allergy status; Z98.51 Tubal ligation status; Z87.442 Personal history of urinary calculi
CPT/HCPCS: 99283; 72110; J8597